=== PATIENT | male | born 1945 | race Caucasian/White ===

== ENCOUNTER 2017-09-22 00:39 | Observation (INO) ==
[2017-09-22] MEDS ORDERED: ACETAMINOPHEN 325 MG TABLET PO ONE (00:51)
[2017-09-22] MEDS ORDERED: 0.9 % SODIUM CHLORIDE 1,000 ML IV ONE ×2 (00:51→02:55)
[2017-09-22 01:52] LABS: Basophils # (Auto) 0 K/mcL (0.0-0.3); Basophils % (Auto) 0.2 % (0.0-2.0); Eosinophils # (Auto) 0 K/mcL (0.0-0.7); Eosinophils % (Auto) 0 % (0.0-7.0); Granulocytes % (Auto) 86.8 % (38.0-78.0); Lymphocytes # (Auto) 0.7 K/mcL (1.5-4.8); Lymphocytes % (Auto) 8.1 % (15.5-49.0); Mean Cell Volume 92.9 fL (80.0-100.0); Mean Corpuscular HGB Conc 33.4 g/dL (31.0-36.0); Mean Corpuscular Hemoglobin 31.1 pg (26.0-34.0); Monocytes # (Auto) 0.4 K/mcL (0.1-0.9); Monocytes % (Auto) 4.9 % (1.0-12.0); Platelet Count 149 K/mcL (140-440); RBC 4.81 M/mcL (4.50-5.90); Red Cell Distribution Width 12.7 % (11.5-14.5)
[2017-09-22 02:22] LABS: ALT/SGPT 46 U/l (0-40); Albumin 4.9 gm/dL (3.2-5.2); Albumin/Globulin Ratio 1.8 (1.0-2.3); Alkaline Phosphatase 39 U/L (39-117); Blood Urea Nitrogen 16 mg/dl (8-23)
--- NOTE | 2017-09-22 03:10 | Emergency Department Note ---
Weakness HPI - General Chief complaint: Weakness Stated complaint: wekaness Time Seen by Provider: 09/22/17 00:51 Source: patient, EMS Mode of arrival: EMS Limitations: no limitations - History of Present Illness HPI Narrative: 72-year-old male who has been sick and feeling weak for about a week. He lives by himself and became confused today; he did not make it to the bathroom on time and lost control of his bowels slipping and falling. He is brought in febrile with temperature 101.[address] or time. After intake and starting fluids Tylenol his confusion gradually resolved such that he could give me a good history. He tells me he has been having intermittent diarrhea with last episode 3 days ago. No shortness of breath or dysuria. General malaise as noted. He is not complaining of pain anywhere and did not injure himself when he fell-specifically no neck pain. - Related Data Home Medications Medication Instructions Recorded Confirmed Lisinopril [Zestril] 2.5 mg PO DAILY 06/11/16 12/15/16 Simvastatin [Zocor] 20 mg PO HS 06/11/16 12/15/16 traZODone HCL [Trazodone HCl] 300 mg PO HS 06/11/16 12/15/16 aspirin 81 mg tablet 81 mg PO QDAY 06/23/16 12/15/16 vitamin B complex tablet 1 tab-cap PO QDAY 06/23/16 12/15/16 Previous Rx's Medication Instructions Recorded omeprazole 20 mg capsule,delayed 20 mg PO QDAY #30 cap 07/06/16 release nystatin 100,000 unit/gram topical 1 applic TOPICAL BID #30 g 09/07/16 ointment Allergies Allergy/AdvReac Type Severity Reaction Status Date / Time No Known Drug Allergies Allergy Verified 12/15/16 12:13 Review of Systems All systems ED: reviewed and negative except as stated. Past Medical History - Past Medical History Attestation: Yes: The following information was validated with the patient. Medical history: Reports: hyperlipidemia, hypertension Surgical history ED: Reports: cataract, orthopedic, other (bunion, bilateral shoulder and AC joint), tonsillectomy - Social History smoking status: Former smoker Alcohol use: Reports: None Physical Exam No acute distress able to cooperate for cleanup interview and exam. At first he is very tremulous but this does resolve with warming, IV fluids, Tylenol. Normocephalic atraumatic. Conjunctive are clear sclerae nonicteric. No nasal discharge or congestion. Oropharynx has dry buccal mucosa. Posterior pharynx is clear. Neck is supple without lymphadenopathy or thyromegaly. Heart is regular rate and rhythm no murmurs appreciated. Lungs are clear to auscultation bilaterally without wheezes rales rhonchi or respiratory distress. Abdomen soft nontender nondistended. There is copious stool all over his lower body from the fall however it is not diarrhea is soft formed stool. No pedal edema. +2 radial pulse. He is alert and his orientation gradually improves to person place and time with treatment as noted above. On initial intake he was oriented only to person. Tremor also resolved. No dysarthria or ataxia. He does appear globally weak and fatigued. However he is able to stand up and move around with some minimal assistance. No focal deficits noted ; face is symmetrical Limitations: no limitations Course Vital Signs Temperature 101.9 F H 09/22/17 00:39 Pulse Rate 87 09/22/17 00:39 Respiratory Rate 19 09/22/17 00:39 Blood Pressure 140/78 09/22/17 00:39 Pulse Oximetry (%) 95 09/22/17 00:39 Temperature 100.1 F H 09/22/17 03:01 Pulse Rate 87 09/22/17 02:46 Respiratory Rate 19 09/22/17 00:39 Blood Pressure 125/71 09/22/17 02:46 Pulse Oximetry (%) 94 09/22/17 02:46 Weakness - Lab Data Lab results reviewed: Yes I reviewed the patient's lab results. Result diagrams: 09/22/17 01:20 09/22/17 01:20 Lab Results 09/22/17 09/22/17 09/22/17 Range/Units 01:20 01:20 01:20 WBC 8.1 (4.5-11.0) K/mcL RBC 4.81 (4.50-5.90) M/mcL Hgb 15.0 (13.5-16.5) g/dL Hct 44.7 (41.0-55.0) % MCV 92.9 (80.0-100.0) fL MCH 31.1 (26.0-34.0) pg MCHC 33.4 (31.0-36.0) g/dL RDW 12.7 (11.5-14.5) % Plt Count 149 (140-440) K/mcL MPV 9.5 (7.4-10.4) fL Gran % 86.8 H (38.0-78.0) % Lymph % (Auto) 8.1 L (15.5-49.0) % [place] % (Auto) 4.9 (1.0-12.0) % Eos % (Auto) 0 (0.0-7.0) % Baso % (Auto) 0.2 (0.0-2.0) % Gran # 7.0 (1.8-8.0) K/mcL Lymph # (Auto) 0.7 L (1.5-4.8) K/mcL [place] # (Auto) 0.4 (0.1-0.9) K/mcL Eos # (Auto) 0 (0.0-0.7) K/mcL Baso # (Auto) 0 (0.0-0.3) K/mcL VBG Lactic Acid 2.3 H (0.5-2.2) mmol/L Sodium 134 (133-145) mmol/L Potassium 4.2 (3.3-5.1) mmol/L Chloride 94 L (96-108) mmol/L Carbon Dioxide 23 (22-30) mmol/L Anion Gap 17.0 H (8-16) BUN 16 (8-23) mg/dl Creatinine 1.0 (0.7-1.2) mg/dl GFR Calculation 75 Glucose 120 H (70-105) mg/dL Calcium 9.3 (8.6-10.4) mg/dl Magnesium 2.0 (1.6-2.5) mg/dL Total Bilirubin 0.4 (0.0-1.0) mg/dL AST 30 (0-37) U/l ALT 46 H (0-40) U/l Alkaline Phosphatase 39 (39-117) U/L Troponin T (0-0.03) ng/ml Total Protein 7.7 (5.9-8.4) gm/dL Albumin 4.9 (3.2-5.2) gm/dL Globulin 2.8 (2.2-3.7) gm/dL Albumin/Globulin Ratio 1.8 (1.0-2.3) TSH 2.21 (0.27-5.01) uIU/ml 09/22/17 Range/Units 01:20 WBC (4.5-11.0) K/mcL RBC (4.50-5.90) M/mcL Hgb (13.5-16.5) g/dL Hct (41.0-55.0) % MCV (80.0-100.0) fL MCH (26.0-34.0) pg MCHC (31.0-36.0) g/dL RDW (11.5-14.5) % Plt Count (140-440) K/mcL MPV (7.4-10.4) fL Gran % (38.0-78.0) % Lymph % (Auto) (15.5-49.0) % [place] % (Auto) (1.0-12.0) % Eos % (Auto) (0.0-7.0) % Baso % (Auto) (0.0-2.0) % Gran # (1.8-8.0) K/mcL Lymph # (Auto) (1.5-4.8) K/mcL [place] # (Auto) (0.1-0.9) K/mcL Eos # (Auto) (0.0-0.7) K/mcL Baso # (Auto) (0.0-0.3) K/mcL VBG Lactic Acid (0.5-2.2) mmol/L Sodium (133-145) mmol/L Potassium (3.3-5.1) mmol/L Chloride (96-108) mmol/L Carbon Dioxide (22-30) mmol/L Anion Gap (8-16) BUN (8-23) mg/dl Creatinine (0.7-1.2) mg/dl GFR Calculation Glucose (70-105) mg/dL Calcium (8.6-10.4) mg/dl Magnesium (1.6-2.5) mg/dL Total Bilirubin (0.0-1.0) mg/dL AST (0-37) U/l ALT (0-40) U/l Alkaline Phosphatase (39-117) U/L Troponin T < 0.01 (0-0.03) ng/ml Total Protein (5.9-8.4) gm/dL Albumin (3.2-5.2) gm/dL Globulin (2.2-3.7) gm/dL Albumin/Globulin Ratio (1.0-2.3) TSH (0.27-5.01) uIU/ml Urinalysis fbutn-yu-nain dipstick shows specific gravity 1.030 but otherwise normal Influenza swab is negative - Radiology Data Radiology results reviewed: Yes I reviewed the patient's radiology results. Chest x-ray shows no acute cardiopulmonary disease - EKG Data EKG attestation: Yes I reviewed and interpreted this EKG. EKG results narrative: EKG shows a rate of 88 normal sinus rhythm. This was initially read by the computer as atrial fibrillation but is in fact artifact from tremor. On close examination one can see a P-wave before every QRS Disposition Pt seen by HEALTH INFORMATION DIRECTOR/PA only: No Clinical Impression: Fever of unknown origin, Dehydration Summary: Initially worked up with flu swab and laboratory. IV fluids started as well as Tylenol for fever. He responded well to Tylenol and fever reduced. His confusion resolved as well as tremulousness. Additional history after confusion resolution reveals no injury from the fall nor neck pain. Fever of unknown origin likely influenza versus GI infection. Influenza swab is negative however sensitivity is relatively low so still possible. C. difficile is less likely secondary to no diarrhea just loss of bowel control. However he could have a viral gastroenteritis. I discussed the results with the patient and I am concerned that he is not able to go home because he lives by himself and he has this fever, dehydration and global weakness-I am concerned that he would fall again if the fever came back. he agreed to come in the hospital so I discussed his situation with Dr. Moss , our hospitalist, who agreed to accept the patient for further inpatient care and evaluation Disposition: Xfer As Inpt ([facility]) Condition: Serious Referrals: No,PCP [Primary Care Provider] -
[2017-09-22] MEDS ORDERED: ONDANSETRON 4 MG/2 ML VIAL IV PRN (03:51)
[2017-09-22] MEDS ORDERED: ACETAMINOPHEN 325 MG TABLET PO PRN (03:51)
[2017-09-22] MEDS ORDERED: HYDROcodone/APAP 5/325MG TABLET PO PRN (03:51)
[2017-09-22] MEDS: 0.9 % SODIUM CHLORIDE 1,000 ML IV SCH ×2 (05:05→15:47)
[2017-09-22 06:04] LABS: Basophils # (Auto) 0 K/mcL (0.0-0.3); Basophils % (Auto) 0.4 % (0.0-2.0); Eosinophils # (Auto) 0 K/mcL (0.0-0.7); Eosinophils % (Auto) 0.3 % (0.0-7.0); Granulocytes % (Auto) 78.3 % (38.0-78.0); Lymphocytes # (Auto) 0.7 K/mcL (1.5-4.8); Lymphocytes % (Auto) 11.2 % (15.5-49.0); Mean Cell Volume 93.2 fL (80.0-100.0); Mean Corpuscular HGB Conc 33.9 g/dL (31.0-36.0); Mean Corpuscular Hemoglobin 31.6 pg (26.0-34.0); Monocytes # (Auto) 0.7 K/mcL (0.1-0.9); Monocytes % (Auto) 9.8 % (1.0-12.0); Platelet Count 116 K/mcL (140-440); RBC 3.91 M/mcL (4.50-5.90); Red Cell Distribution Width 12.6 % (11.5-14.5)
[2017-09-22 06:08] LABS: ALT/SGPT 34 U/l (0-40); Albumin 3.5 gm/dL (3.2-5.2); Albumin/Globulin Ratio 1.6 (1.0-2.3); Alkaline Phosphatase 30 U/L (39-117); Bilirubin,Direct < 0.2 mg/dL (0.0-0.3); Blood Urea Nitrogen 15 mg/dl (8-23); Gamma Glutamyl Transpeptidase 28 U/L (8-61); Magnesium 1.8 mg/dL (1.6-2.5)
--- NOTE | 2017-09-22 08:47 | XRay Report ---
HISTORY: Reason for Exam:weakness, fever with flu symptoms FINDINGS: The lungs are clear and well expanded. There is no evidence of pneumonia, pleural effusion or adenopathy. The heart size is normal. IMPRESSION: Normal chest Interpreted and Authenticated by: Vini Vogel 09/22/17
--- NOTE | 2017-09-22 08:52 | Cat Scan Report ---
History: Fell, head injury, loss of consciousness and weakness Findings: The brain was imaged without contrast at 2.5 mm intervals. The bone windows show no skull fracture. There is no intracranial hemorrhage, cerebral edema or mass effect. There are patchy areas of decreased attenuation in the centrum semiovale and lucas radiata bilaterally. These correlate with high signal lesions seen in the white matter prior MRI done in [facility] on 05/09/08. The white matter disease has progressed. 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 This was not present in 2007. No acute infarct is detected. There is mild generalized cerebral atrophy. The ventricles are prominent but proportionate to the atrophy. There is severe left-sided sphenoid sinusitis and moderate bilateral ethmoid sinusitis. Mild frontal sinusitis is present as well. Impression: No acute brain injury Age-related degenerative changes with atrophy, white matter ischemia or degeneration and small old lacunar infarct in the right external capsule Sinusitis with the greatest involvement in the left sphenoid Interpreted and Authenticated by: Vini Vogel 09/22/17
[2017-09-22] MEDS: VITAMIN B COMPLEX 1 CAPSULE PO SCH (09:06)
[2017-09-22] MEDS: FAMOTIDINE 20 MG TABLET PO SCH ×2 (09:07→20:41)
[2017-09-22] MEDS: HEPARIN 5,000 UNIT/ML VIAL SQ SCH ×2 (09:07→20:40)
[2017-09-22] MEDS: ASPIRIN 81 MG TAB.CHEW PO SCH (09:07)
[2017-09-22] MEDS: LISINOPRIL 5 MG TABLET PO SCH (09:07)
--- NOTE | 2017-09-22 09:26 | XRay Report ---
HISTORY: Reason for Exam:cough FINDINGS: The right upper lobe is relatively hyperlucent compared to the left side. This raises the possibility of mild emphysema. There is no evidence of pneumonia, congestive heart failure, mass or pleural effusion. The heart size is normal. The hyperlucency of the right upper lobe was not apparent on the preceding portable chest x-ray done earlier on the same date. IMPRESSION: Possible mild emphysema involving the right upper lobe. No acute abnormality is detected.. Interpreted and Authenticated by: Vini Vogel 09/22/17
[2017-09-22] MEDS: LEVOFLOXACIN 500 MG TABLET PO SCH (10:08)
[2017-09-22 11:22] LABS: Appearance,Urine CLEAR; Bacteria,Urine 0 /hpf (0); Bilirubin,Urine NEG (NEG); Color,Urine STRAW; Glucose,Urine (UA) NEGATIVE (NEG); Leukocyte Esterase,Urine NEG /uL (NEG); Mucus,Urine FEW /hpf (0); Nitrate,Urine NEG (NEG); Protein,Urine NEG (NEG); Specific Gravity,Urine 1.008 (1.000-1.035); Urine Blood NEG mg/dL (<0.03); Urine RBC < 1 /hpf (0-1); Urine Squamous Epithelial Cell 0 /hpf (0-4); Urine WBC 10 /hpf (0-4); Urobilinogen,Urine NEG (NEG)
--- NOTE | 2017-09-22 13:23 | Internal Med History&Physical ---
Medical - H&P: HPI Patient information: Note initiated : 09/22/17 at 1:21 pm Service Date, if different from initiated Date: [] Patient: Shamar Ji a 72 y/o M admitted on 09/22/17 for weakness. Chief Complaint: [] History of present illness: Mr. Ji is a 72 year old Male with h/o HTN, HLD, living by self, presents to the ER with compalints of sinus congestion, cough x 1 week, not feeling well malaise and fatigue, He reports that his condition has gradually declined, he has had poor appetite. he has not had BM for a few d ays yesterday while getting out of bed, he fell down, not sure if hit his head, but had passed out, the patient is not sure how long, anywhere between 15mins to 3 hrs, when he woke up he was soiled in stools, not liquid, he then called his daughter in law, alpeshmelinda helped get him to the hospital In the hospital he was febrile, he had neg CXR chest, lab were unremarkable, given his extensive weakness and some confusion, he was admitted to the hospital for further management. CT head was ordered which is neg for ICH/ CVA but positive for sinusitis, his CXR is negative. Procalcitonin 0.17 All systems: reviewed and no additional remarkable complaints except as stated ( as per hpi) Medical - H&P: PMH Medical history: Medical History Fever of unknown origin (Acute) Dehydration (Acute) Seborrheic dermatitis of scalp (Chronic) Hyperlipidemia (Chronic) Anxiety (Chronic) Esophageal dysphagia (Acute) Surgical history: Past Surgical History H/O shoulder surgery (Chronic) History of bunionectomy of right great toe (Chronic) Family history: reviewed and not pertinent Medical - H&P: Meds Home Medications Medication Instructions Recorded Confirmed Type Lisinopril [Zestril] 2.5 mg PO DAILY 06/11/16 09/22/17 History Simvastatin [Zocor] 20 mg PO HS 06/11/16 09/22/17 History traZODone HCL [Trazodone HCl] 300 mg PO HS 06/11/16 09/22/17 History aspirin 81 mg tablet 81 mg PO QDAY 06/23/16 09/22/17 History vitamin B complex tablet 1 tab-cap PO QDAY 06/23/16 09/22/17 History omeprazole 20 mg capsule,delayed 20 mg PO QDAY #30 cap 07/06/16 09/22/17 Rx release nystatin 100,000 unit/gram topical 1 applic TOPICAL BID #30 g 09/07/16 09/22/17 Rx ointment Allergies Allergy/AdvReac Type Severity Reaction Status Date / Time No Known Drug Allergies Allergy Verified 12/15/16 12:13 Medical - H&P: Exam - Constitutional Vitals: Temp Pulse Resp BP Pulse Ox 99.1 F H 72 20 123/65 97 09/22/17 12:00 09/22/17 12:00 09/22/17 12:00 09/22/17 12:00 09/22/17 12:00 Exam: GENERAL: The patient is a well-developed, well-nourished in no apparent distress. Is alert and oriented x3. VITAL SIGNS: Reviewed and as noted elsewhere. HEENT: Head is normocephalic and atraumatic. Extraocular muscles are intact. Pupils are equal, round, and reactive to light. Nares appeared normal. Mouth appears any without lesions. Mucous membranes are dry NECK: Normal to inspection, Supple, No lymphadenopathy or thyromegaly. LUNGS: Air entry equal on both sides, no wheezing, crackles or rhonchi noted. No accessory muscles of respiration HEART: Regular rate and rhythm normal, S1 and S2 heard, no Gallop, S3 or Rub Noted, No Gross murmur heard. ABDOMEN: Soft, nontender, and nondistended. Positive bowel sounds. No hepatosplenomegaly was noted. EXTREMITIES: No cyanosis, clubbing, rash, lesions or edema. NEUROLOGIC: Cranial nerves II through XII are grossly intact. Motor and Sensory System Grossly Intact PSYCHIATRIC: Normal affect, Normal Mood. Appropriate Behavior. SKIN: No ulceration or wounds noted, No jaundice, No rash noted. Medical - H&P: Reslt - Labs CBC & Chem 7: 09/22/17 04:00 09/22/17 04:00 Labs: Short CBC 09/22/17 09/22/17 Range/Units 01:20 04:00 WBC 8.1 6.7 (4.5-11.0) K/mcL Hgb 15.0 12.4 L (13.5-16.5) g/dL Hct 44.7 36.5 L (41.0-55.0) % Plt Count 149 116 L (140-440) K/mcL BMP 09/22/17 09/22/17 01:20 04:00 Sodium 134 136 Potassium 4.2 4.1 Chloride 94 L 102 Carbon Dioxide 23 19 L BUN 16 15 Creatinine 1.0 0.8 Glucose 120 H 114 H Calcium 9.3 8.0 L Cardiac Enzymes 09/22/17 09/22/17 Range/Units 01:20 01:20 Total Creatine Kinase 68 (24-195) IU/L Troponin T < 0.01 (0-0.03) ng/ml Liver Function 09/22/17 09/22/17 Range/Units 01:20 04:00 Total Bilirubin 0.4 0.3 (0.0-1.0) mg/dL Direct Bilirubin < 0.2 (0.0-0.3) mg/dL GGT 28 (8-61) U/L AST 30 22 (0-37) U/l ALT 46 H 34 (0-40) U/l Alkaline Phosphatase 39 30 L (39-117) U/L Albumin 4.9 3.5 (3.2-5.2) gm/dL Urine 09/22/17 Range/Units 10:39 Urine Color Straw Urine Appearance Clear Urine pH 6.0 (5.0-9.0) Ur Specific [place] 1.008 (1.000-1.035) Urine Protein Neg (NEG) mg/dL Urine Glucose (UA) Negative (NEG) mg/dL Medical - H&P: A/P - Narrative A/P Narrative: A/P Syncope: EKG is sinus, monitor on telemetry, CT head neg, likely related to dehydration/ orthostatic changes when tried to get out of bed. IV fluids for now. given stool incontinence unable to completely rule out a seizure, but he has no h/o seizure disorder, no family history of seizure disorder FEver/ sinusitis: patient CT shows sinusitis, started on levofloxacin 500mg daily, blood cultures sent, this is likely responsible for patients confusion as well as his weakness. HOpfeully will improve after treatment of the infection HTN: Bp stable continue lisinopril HLD: on statin Weakness: Due to infection/ dehydration, OT/ PT eval. Diet Regular DNR Full code. Medical - H&P: Qual - VTE Deep Vein Thrombosis/Pulmonary Embolism Present on Admission: No Social History - Social History marital status: - Tobacco smoking status: Former smoker - Alcohol alcohol intake frequency: 0-2 drinks per day - Substance use substance use type: former substance user, marijuana
[2017-09-22] MEDS ORDERED: SIMVASTATIN 20 MG TABLET PO SCH (21:00)
[2017-09-22] MEDS ORDERED: traZODone HCL 150 MG TABLET PO SCH (21:00)
[2017-09-23 05:08] LABS: Basophils # (Auto) 0 K/mcL (0.0-0.3); Basophils % (Auto) 0.7 % (0.0-2.0); Eosinophils # (Auto) 0 K/mcL (0.0-0.7); Eosinophils % (Auto) 0.8 % (0.0-7.0); Granulocytes % (Auto) 44.3 % (38.0-78.0); Lymphocytes # (Auto) 1.8 K/mcL (1.5-4.8); Mean Cell Volume 93.6 fL (80.0-100.0); Mean Corpuscular HGB Conc 33.9 g/dL (31.0-36.0); Mean Corpuscular Hemoglobin 31.7 pg (26.0-34.0); Monocytes # (Auto) 0.6 K/mcL (0.1-0.9); Monocytes % (Auto) 14.2 % (1.0-12.0); Platelet Count 116 K/mcL (140-440); RBC 3.77 M/mcL (4.50-5.90); Red Cell Distribution Width 12.5 % (11.5-14.5)
[2017-09-23 05:16] LABS: ALT/SGPT 27 U/l (0-40); Albumin 3.2 gm/dL (3.2-5.2); Albumin/Globulin Ratio 1.5 (1.0-2.3); Alkaline Phosphatase 29 U/L (39-117); Bilirubin,Direct < 0.2 mg/dL (0.0-0.3); Blood Urea Nitrogen 14 mg/dl (8-23); Gamma Glutamyl Transpeptidase 27 U/L (8-61); Magnesium 1.9 mg/dL (1.6-2.5)
[2017-09-23] MEDS: ASPIRIN 81 MG TAB.CHEW PO SCH (09:35)
[2017-09-23] MEDS: LEVOFLOXACIN 500 MG TABLET PO SCH (09:35)
[2017-09-23] MEDS: FAMOTIDINE 20 MG TABLET PO SCH (09:35)
[2017-09-23] MEDS: LISINOPRIL 5 MG TABLET PO SCH (09:35)
[2017-09-23] MEDS: HEPARIN 5,000 UNIT/ML VIAL SQ SCH ×2 (09:35→09:40)
[2017-09-23] MEDS: VITAMIN B COMPLEX 1 CAPSULE PO SCH (09:35)
--- NOTE | 2017-09-23 10:40 | Discharge Summary ---
Medical - DS: Prov Patient information: Note initiated : 09/23/17 at 10:38 am Service Date, if different from initiated Date: [] Patient: Shamar Ji 72 y/o M admitted on 09/22/17 for weakness. Chief Complaint: Fall, LOC, weakness, congestion Date of admission: 09/22/17 03:46 Discharge date: 09/23/17 Primary care physician: JENARO Santos Admitting clinician: Ok Moss Consults: 09/22/17 03:02 Consult to Physician [CONS] Stat Comment: Consulting Provider: Ok Moss Reason For Exam: Physician to Consult Discharging clinician: Michelle Sykes Medical - DS: Meds - Discharge Medications Prescriptions: Levofloxacin [Levaquin] 500 mg PO DAILY #5 tab Active and Home Medications: Home Medications Lisinopril [Zestril] 2.5 mg PO DAILY 06/11/16 [History Confirmed 09/22/17 Last Taken 09/20/17 21:00] Simvastatin [Zocor] 20 mg PO HS 06/11/16 [History Confirmed 09/22/17 Last Taken 09/20/17 21:00] traZODone HCL [Trazodone HCl] 300 mg PO HS 06/11/16 [History Confirmed 09/22/17 Last Taken 09/20/17 21:00] aspirin 81 mg tablet 81 mg PO QDAY 06/23/16 [History Confirmed 09/22/17 Last Taken 09/20/17 21:00] vitamin B complex tablet 1 tab-cap PO QDAY 06/23/16 [History Confirmed 09/22/17 Last Taken 09/20/17 21:00] omeprazole 20 mg capsule,delayed release 20 mg PO QDAY #30 cap 07/06/16 [Rx Confirmed 09/22/17 Last Taken Unknown] nystatin 100,000 unit/gram topical ointment 1 applic TOPICAL BID #30 g 09/07/16 [Rx Confirmed 09/22/17 Last Taken 09/20/17 21:00] Medical - DS: Hosp Hospital course: Mr. Ji is a 72 year old Male with h/o HTN, HLD, living by self, presents to the ER with compalints of sinus congestion, cough x 1 week, not feeling well malaise and fatigue, He reports that his condition has gradually declined, he has had poor appetite. He has not had BM for a few d ays Yesterday while getting out of bed, he fell down, not sure if hit his head, but had passed out, the patient is not sure how long, anywhere between 15mins to 3 hrs, when he woke up he was soiled in stools, not liquid, he then called his daughter in law, pricilla helped get him to the hospital In the hospital he was febrile, he had neg CXR chest, lab were unremarkable, given his extensive weakness and some confusion, he was admitted to the hospital for further management. CT head was ordered which is neg for ICH/ CVA but positive for sinusitis, his CXR is negative. Procalcitonin 0.17. The patient continued to improve during his hospitalization. He did start having loose bowel movements in the hospital, this is been a chronic problem for him with intermittent bouts of diarrhea for the last couple of years. He did have a colonoscopy last year without significant findings. On the day of discharge, he is ambulating the hallways with physical therapy with good stamina. He was having less sinus pressure. In retrospect, the only identified source of illness was his sinusitis. He will continue on a 7 day course of levofloxacin. Discharge diagnosis: Sinusitis - Time Spent with Patient Total time spent providing and/or coordinating discharge services: Medical - DS: Exam - Constitutional Vitals: Vital Signs Temp Pulse Resp BP Pulse Ox 09/23/17 07:20 98.3 F 55 L 18 137/72 95 09/23/17 03:48 99.3 F H 62 16 138/74 93 09/23/17 00:00 99.4 F H 72 16 131/76 93 09/22/17 19:04 98.6 F 71 16 129/68 95 09/22/17 16:00 98.5 F 72 18 131/73 96 09/22/17 12:00 99.1 F H 72 20 123/65 97 Intake and Output 09/22/17 09/23/17 09/23/17 21:59 05:59 13:59 Intake Total 1660 / 1660 1250 / 1250 Output Total 1100 / 1100 1375 / 1375 275 / 275 Balance 560 / 560 -125 / -125 -275 / -275 Intake: IV 1000 / 1000 1000 / 1000 Sodium Chloride 0.9% 1,000 ml @ 1000 / 1000 100 mls/hr IV .Q10H [facility] Rx#: [id number] Oral 660 / 660 250 / 250 Output: Void Amount 1100 / 1100 1375 / 1375 275 / 275 Other: Meal Dinner Percent of Meal Consumed 100% Feeding Ability Assist with Tray Set Up # Voids 1 # Bowel Movements 1 1 Weight 190 lb 8 oz Additional comments: General: In no acute distress HEENT: Nares patent, no facial tenderness. Chest: Clear, no rales or wheezed. Cardiovascular: Regular, no edema Abdomen: Soft, mild tenderness to palpation, no guarding or rebound. Neuro: Alert, oriented 3, ambulating with normal gait. Medical - DS: Data Procedures and tests throughout hospitalization: CT Head: Impression: No acute brain injury Age-related degenerative changes with atrophy, white matter ischemia or degeneration and small old lacunar infarct in the right external capsule Sinusitis with the greatest involvement in the left sphenoid CXR: IMPRESSION: Possible mild emphysema involving the right upper lobe. No acute abnormality is detected. Labs on day of discharge: Labs from last 24 hours 09/23/17 09/23/17 09/22/17 03:40 03:40 10:39 WBC 4.4 L RBC 3.77 L Hgb 11.9 L Hct 35.3 L MCV 93.6 MCH 31.7 MCHC 33.9 RDW 12.5 Plt Count 116 L MPV 9.6 Gran % 44.3 Lymph % (Auto) 40.0 [place] % (Auto) 14.2 H Eos % (Auto) 0.8 Baso % (Auto) 0.7 Gran # 1.9 Lymph # (Auto) 1.8 [place] # (Auto) 0.6 Eos # (Auto) 0 Baso # (Auto) 0 Sodium 141 Potassium 4.3 Chloride 109 H Carbon Dioxide 22 Anion Gap 10.0 BUN 14 Creatinine 1.0 GFR Calculation 75 Glucose 85 Uric Acid 6.0 Calcium 8.1 L Phosphorus 3.6 Magnesium 1.9 Total Bilirubin 0.2 Direct Bilirubin < 0.2 GGT 27 AST 19 ALT 27 Alkaline Phosphatase 29 L Lactate Dehydrogenase 144 Total Protein 5.4 L Albumin 3.2 Globulin 2.2 Albumin/Globulin Ratio 1.5 Triglycerides 65 Urine Color Straw Urine Appearance Clear Urine pH 6.0 Ur Specific [place] 1.008 Urine Protein Neg Urine Glucose (UA) Negative Urine Ketones Neg Urine Occult Blood Neg Urine Nitrate Neg Urine Bilirubin Neg Urine Urobilinogen Neg Ur Leukocyte Esterase Neg Urine RBC < 1 Urine WBC 10 H Ur Squamous Epith Cells 0 Urine Bacteria 0 Urine Mucus Few Ur Culture Indicated? Yes Preliminary micro results at discharge 09/22/17 03:40 Blood Culture - Preliminary Blood 09/22/17 03:35 Blood Culture - Preliminary Blood Medical - DS: A/P - Patient/Caregiver Discharge Instructions Activity: increase activity as tolerated Diet: Regular Diet Additional Instructions: Stop taking trazodone at night while you are taking levofloxacin (antibiotic). You may resume taking trazodone after completing the antibiotic. - Follow up Plan Follow up with: Grecia Mcintyre ARNP [Nurse Practitioner] - (7-10 days) Disposition: Home, Self-Care Prognosis: Good Rehab Potential: Good Overall status at discharge: patient is progressing back to baseline Medical - DS: Qual - VTE Deep Vein Thrombosis/Pulmonary Embolism Present on Admission: No
== END 2017-09-23 13:08 | disposition home or self-care (01) ==
LOC: ED 00:39 → ICU 00:39
PROVIDERS: ADMIT Internal Medicine; ATTEND Internal Medicine